=== PATIENT | male | born 1970 | race Caucasian/White ===

== ENCOUNTER 2021-06-18 11:21 | Emergency (ER) | payer SELFPAY ==
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
[2021-06-18 11:33] VITALS: BP 185/98; PULSE 68; RESP 18; O2SAT 97; BMI 34.9
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
[2021-06-18] MEDS: tetanus-dipt-pertussis 0.5 mL SDV IM (11:53)
[2021-06-18] MEDS: morphine 4 mg/mL SDV 1 mL IVP (11:55)
[2021-06-18] MEDS: iohexol 300 mg/mL 100 mL Btl IV (12:50)
[2021-06-18] MEDS: acetaminophen 500 mg Tablet 1000 MG PO (13:28)
[2021-06-18] MEDS: oxyCODONE 5 mg IR Tab/Cap PO (14:02)
[2021-06-18] MEDS: methocarbamol 750 mg Tablet PO (14:02)
[2021-06-18 14:21] VITALS: BP 166/91; PULSE 68; RESP 18; O2SAT 99
== END 2021-06-18 14:22 | disposition home or self-care (01) ==
PROVIDERS: Emergency Provider Emergency Medicine; PCP Nurse Practitioner Family
DX: T14.8XXA Other injury of unspecified body region, initial encounter (principal); V19.9XXA Pedal cyclist (driver) (passenger) injured in unspecified traffic accident, initial encounter; M54.9 Dorsalgia, unspecified
CPT/HCPCS: 70450; 71260; 72125; 74177; 90471; 90715; 96374; 99283; J2270; Q9967